=== PATIENT | female | born 1955 | race Caucasian/White ===

== ENCOUNTER 2017-08-28 12:17 | Inpatient (IN) | payer MEDICARE ==
[~2017-08-28] VITALS: Wt 85.8 kg
[2017-08-28] VITALS (8 sets, daily range): BP systolic 109–140; BP diastolic 40–110
[2017-08-28] MEDS ORDERED: VITAMIN D2400 UNIT PO (12:39)
[2017-08-28] MEDS ORDERED: LASIX40 MG PO (12:40)
[2017-08-28] MEDS ORDERED: FERROUS SULFAT325 MG PO (12:40)
[2017-08-28] MEDS ORDERED: TOPROL XL50 M1 PO (12:41)
[2017-08-28] MEDS ORDERED: LEVEMIR100 UNIT/1 SQ (12:41)
[2017-08-28] MEDS ORDERED: CLARITIN10 MG PO (12:41)
[2017-08-28 13:09] LABS: HEMATOCRIT 26.8 % (37.0-47.0); HEMOGLOBIN 8.5 g/dl (12.0-16.0); MEAN CELL VOLUME 82.5 fl (81.0-99.0); MEAN CORPUSCULAR HGB 26.2 pg (27.0-31.0); MEAN CORPUSCULAR HGB CONC 31.7 g/dl (33.0-37.0); PLATELET COUNT AUTOMATED 374 10*3/uL (130-400); RED BLOOD COUNT 3.25 10*6/uL (4.10-5.10); RED CELL DISTRI WIDTH 17.2 % (0-14.5); WHITE BLOOD COUNT 21.4 10*3/uL (4.8-10.8)
[2017-08-28 13:26] LABS: ALBUMIN 1.6 gm/dl (3.1-4.5); ALKALINE PHOSPHATASE 96 U/L (45-117); BUN 15 mg/dl (7-24); CHLORIDE 87 mmol/L (98-107); CREATININE 0.59 mg/dL (0.55-1.02); LIPASE 125 U/L (73-393); POTASSIUM 4.7 mmol/L (3.5-5.1); SGOT/AST 22 IU/L (3-35); SGPT/ALT 22 U/L (12-78); SODIUM 124 mmol/L (136-145); TOTAL PROTEIN 7.4 gm/dL (6.4-8.2)
[2017-08-28 13:28] LABS: BILIRUBIN NEGATIVE (NEGATIVE); BLOOD 2+ (NEGATIVE); CLARITY SL CLOUDY (CLEAR); COLOR YELLOW (YELLOW); GLUCOSE 2+ (NEGATIVE); KETONE NEGATIVE (NEGATIVE); LEUKO ESTERASE NEGATIVE (NEGATIVE); NITRITE NEGATIVE (NEGATIVE); UROBILINOGEN 0.2 E.U./dl (0.2-1.0)
[2017-08-28 13:28] LABS: TROPONIN I < 0.015 ng/ml (<0.045)
[2017-08-28 13:44] LABS: TOTAL CELLS COUNTED 100 #CELLS
[2017-08-28 13:45] LABS: PLATELET SUFFICIENCY NORMAL (NORMAL); POLYCHROMASIA SLIGHT
[2017-08-28 13:51] LABS: ACT PARTIAL THROMBO TIME 22.3 SECONDS (20.8-31.5); INTERNATIONAL NORM RATIO 1.1 (2.0-3.5)
[2017-08-28] MEDS ORDERED: TYLENOL325 M1 PO (18:54)
[2017-08-28] MEDS ORDERED: DULCOLAX10 M1 R (18:55)
[2017-08-28] MEDS ORDERED: MILK OF MA400 MG/51 PO (18:56)
[2017-08-28] MEDS ORDERED: FLEET ENEMA 13133 ML R (18:57)
[2017-08-28] MEDS ORDERED: IMODIUM A-D2 M2 PO (18:59)
[2017-08-28] MEDS ORDERED: MUCINEX DM 30/61 TAB PO (18:59)
[2017-08-28] MEDS ORDERED: PHENERGAN25 M3 PO (19:00)
[2017-08-28] MEDS ORDERED: PHENERGAN25 MG/1 ML IM (19:01)
[2017-08-28] MEDS ORDERED: OCEAN104 ML NAS (19:02)
[2017-08-28] MEDS ORDERED: DUONEB 3 MG/3 ML3 M1 INH (19:03)
[2017-08-29] VITALS: BP 107/52
[2017-08-29 04:00] VITALS: BP 104/50
[2017-08-29 05:48] LABS: ALBUMIN 1.6 gm/dl (3.1-4.5); ALKALINE PHOSPHATASE 89 U/L (45-117); BUN 16 mg/dl (7-24); CHLORIDE 89 mmol/L (98-107); CHOLESTEROL 89 mg/dL (<200); CREATININE 0.42 mg/dL (0.55-1.02); HDL CHOLESTEROL 8 mg/dl (40-60); LDL CHOLESTEROL 40 mg/dL (9-159); PHOSPHOROUS 1.9 mg/dL (2.5-4.9); POTASSIUM 4.3 mmol/L (3.5-5.1); SGOT/AST 21 IU/L (3-35); SGPT/ALT 19 U/L (12-78); SODIUM 128 mmol/L (136-145); TOTAL PROTEIN 7.1 gm/dL (6.4-8.2); TRIGLYCERIDES 203 mg/dl (<150); VLDL CHOLESTEROL 41 mg/dL (6-40)
[2017-08-29 05:58] LABS: MEAN CELL VOLUME 83.6 fl (81.0-99.0); MEAN CORPUSCULAR HGB 25.7 pg (27.0-31.0); MEAN CORPUSCULAR HGB CONC 30.8 g/dl (33.0-37.0); MEAN PLATELET VOLUME 9.1 fl (9.6-12.3); PLATELET COUNT AUTOMATED 430 10*3/uL (130-400); RED BLOOD COUNT 3.11 10*6/uL (4.10-5.10); RED CELL DISTRI WIDTH 17.4 % (0-14.5); WHITE BLOOD COUNT 20.9 10*3/uL (4.8-10.8)
[2017-08-29 06:23] LABS: BASOPHILS 1 % (0-1); TOTAL CELLS COUNTED 100 #CELLS
[2017-08-29 06:24] LABS: PLATELET SUFFICIENCY HIGH (NORMAL); TOXIC GRANULATION SLIGHT
[2017-08-29 07:43] LABS: VITAMIN D, 25-HYDROXY 28.7 ng/mL (30-100)
[2017-08-29 08:00] VITALS: BP 113/50
[2017-08-29 12:00] VITALS: BP 110/53
[2017-08-29 16:00] VITALS: BP 119/57
[2017-08-29 20:00] VITALS: BP 109/55
[2017-08-30] VITALS: BP 152/59; BP 90/53
[2017-08-30 04:00] VITALS: BP 137/72
[2017-08-30 05:24] LABS: ALBUMIN 1.6 gm/dl (3.1-4.5); ALKALINE PHOSPHATASE 102 U/L (45-117); BUN 19 mg/dl (7-24); CHLORIDE 94 mmol/L (98-107); CREATININE 0.49 mg/dL (0.55-1.02); PHOSPHOROUS 3.4 mg/dL (2.5-4.9); POTASSIUM 4.7 mmol/L (3.5-5.1); SGOT/AST 29 IU/L (3-35); SGPT/ALT 22 U/L (12-78); SODIUM 132 mmol/L (136-145); TOTAL PROTEIN 7.2 gm/dL (6.4-8.2)
[2017-08-30 05:54] LABS: HEMATOCRIT 27.1 % (37.0-47.0); HEMOGLOBIN 8.2 g/dl (12.0-16.0); MEAN CORPUSCULAR HGB 25.7 pg (27.0-31.0); MEAN CORPUSCULAR HGB CONC 30.3 g/dl (33.0-37.0); MEAN PLATELET VOLUME 9.2 fl (9.6-12.3); PLATELET COUNT AUTOMATED 493 10*3/uL (130-400); RED BLOOD COUNT 3.19 10*6/uL (4.10-5.10); RED CELL DISTRI WIDTH 17.6 % (0-14.5); WHITE BLOOD COUNT 14.2 10*3/uL (4.8-10.8)
[2017-08-30 06:26] LABS: BASOPHILS 1 % (0-1); PLATELET SUFFICIENCY HIGH (NORMAL); POLYCHROMASIA SLIGHT; TOTAL CELLS COUNTED 100 #CELLS
[2017-08-30 08:00] VITALS: BP 124/61
[2017-08-30 12:00] VITALS: BP 129/61
[2017-08-30 16:00] VITALS: BP 121/61
[2017-08-30 20:00] VITALS: BP 124/66
[2017-08-31] VITALS: BP 116/56
[2017-08-31 06:11] LABS: HEMATOCRIT 27.7 % (37.0-47.0); HEMOGLOBIN 8.5 g/dl (12.0-16.0); MEAN CELL VOLUME 83.9 fl (81.0-99.0); MEAN CORPUSCULAR HGB 25.8 pg (27.0-31.0); MEAN CORPUSCULAR HGB CONC 30.7 g/dl (33.0-37.0); MEAN PLATELET VOLUME 8.7 fl (9.6-12.3); NUCLEATED RED BLOOD CELL 0.2 % (0.0-0.0); PLATELET COUNT AUTOMATED 514 10*3/uL (130-400); RED CELL DISTRI WIDTH 17.8 % (0-14.5); WHITE BLOOD COUNT 12.6 10*3/uL (4.8-10.8)
[2017-08-31 06:42] LABS: TOTAL CELLS COUNTED 100 #CELLS
[2017-08-31 06:43] LABS: PLATELET SUFFICIENCY HIGH (NORMAL); POLYCHROMASIA SLIGHT
[2017-08-31 06:44] LABS: BUN 16 mg/dl (7-24); CHLORIDE 97 mmol/L (98-107); CREATININE 0.28 mg/dL (0.55-1.02); PHOSPHOROUS 3.3 mg/dL (2.5-4.9); POTASSIUM 4.3 mmol/L (3.5-5.1); SODIUM 135 mmol/L (136-145)
[2017-08-31 08:00] VITALS: BP 126/71
[2017-08-31 12:00] VITALS: BP 122/68
[2017-08-31 16:00] VITALS: BP 130/86
[2017-08-31 20:00] VITALS: BP 130/86
[2017-09-01 00:23] VITALS: BP 151/67
[2017-09-01 06:24] LABS: HEMOGLOBIN 9.1 g/dl (12.0-16.0); MEAN CELL VOLUME 86.2 fl (81.0-99.0); MEAN CORPUSCULAR HGB 26.1 pg (27.0-31.0); MEAN CORPUSCULAR HGB CONC 30.3 g/dl (33.0-37.0); MEAN PLATELET VOLUME 8.6 fl (9.6-12.3); NUCLEATED RED BLOOD CELL 0.2 % (0.0-0.0); PLATELET COUNT AUTOMATED 555 10*3/uL (130-400); RED BLOOD COUNT 3.48 10*6/uL (4.10-5.10); RED CELL DISTRI WIDTH 17.9 % (0-14.5); WHITE BLOOD COUNT 13.2 10*3/uL (4.8-10.8)
[2017-09-01 06:36] LABS: BUN 17 mg/dl (7-24); CHLORIDE 96 mmol/L (98-107); CREATININE 0.26 mg/dL (0.55-1.02); POTASSIUM 4.6 mmol/L (3.5-5.1); SODIUM 135 mmol/L (136-145)
[2017-09-01 07:06] LABS: ATYPICAL LYMPHS 1 % (0-0); TOTAL CELLS COUNTED 100 #CELLS
[2017-09-01 07:07] LABS: PLATELET SUFFICIENCY HIGH (NORMAL); POLYCHROMASIA SLIGHT; TOXIC GRANULATION SLIGHT
[2017-09-01 08:00] VITALS: BP 125/71
[2017-09-01 12:00] VITALS: BP 148/76
[2017-09-01 16:00] VITALS: BP 136/82
[2017-09-01 20:00] VITALS: BP 144/70
[2017-09-02] VITALS: BP 131/65
[2017-09-02 07:48] LABS: BUN 18 mg/dl (7-24); CHLORIDE 94 mmol/L (98-107); CREATININE 0.34 mg/dL (0.55-1.02); POTASSIUM 4.8 mmol/L (3.5-5.1); SODIUM 131 mmol/L (136-145)
[2017-09-02 07:50] LABS: HEMATOCRIT 29.5 % (37.0-47.0); HEMOGLOBIN 8.9 g/dl (12.0-16.0); MEAN CORPUSCULAR HGB 25.6 pg (27.0-31.0); MEAN CORPUSCULAR HGB CONC 30.2 g/dl (33.0-37.0); MEAN PLATELET VOLUME 8.6 fl (9.6-12.3); PLATELET COUNT AUTOMATED 516 10*3/uL (130-400); RED BLOOD COUNT 3.47 10*6/uL (4.10-5.10); RED CELL DISTRI WIDTH 18.4 % (0-14.5); WHITE BLOOD COUNT 11.1 10*3/uL (4.8-10.8)
[2017-09-02 08:00] VITALS: BP 144/70
[2017-09-02 08:16] LABS: PLATELET SUFFICIENCY HIGH (NORMAL); POLYCHROMASIA SLIGHT; TOTAL CELLS COUNTED 100 #CELLS
[2017-09-02 08:17] LABS: ROULEAUX SLIGHT
[2017-09-02 12:00] VITALS: BP 152/88
[2017-09-02 16:22] VITALS: BP 152/83
[2017-09-02 20:00] VITALS: BP 150/79
[2017-09-03] VITALS: BP 144/80
[2017-09-03 08:00] VITALS: BP 136/54
[2017-09-03 12:00] VITALS: BP 154/68
[2017-09-03 16:00] VITALS: BP 131/61
[2017-09-03 20:00] VITALS: BP 121/68
[2017-09-04] VITALS: BP 102/69
[2017-09-04 08:00] VITALS: BP 114/64
[2017-09-04 12:00] VITALS: BP 113/70; BP 114/56
[2017-09-04 16:00] VITALS: BP 139/80
[2017-09-04 20:00] VITALS: BP 116/55
[2017-09-05] VITALS: BP 119/76
[2017-09-05 06:48] LABS: BASO % 0.4 % (0.0-1.0); EOS # 0.3 10*3/uL (0.0-0.4); EOS % 3.4 % (1.0-4.0); HEMATOCRIT 30.1 % (37.0-47.0); HEMOGLOBIN 9.4 g/dl (12.0-16.0); LYMPH # 1.9 10*3/uL (1.3-4.4); LYMPH % 23.5 % (27.0-41.0); MEAN CELL VOLUME 84.3 fl (81.0-99.0); MEAN CORPUSCULAR HGB 26.3 pg (27.0-31.0); MEAN CORPUSCULAR HGB CONC 31.2 g/dl (33.0-37.0); MEAN PLATELET VOLUME 8.4 fl (9.6-12.3); MONO # 0.7 10*3/uL (0.1-1.0); MONO % 9.2 % (3.0-9.0); NEUT # 4.9 10*3/uL (2.3-7.9); NEUT % 62.5 % (47.0-73.0); PLATELET COUNT AUTOMATED 331 10*3/uL (130-400); RED BLOOD COUNT 3.57 10*6/uL (4.10-5.10); RED CELL DISTRI WIDTH 18.9 % (0-14.5); WHITE BLOOD COUNT 7.9 10*3/uL (4.8-10.8)
[2017-09-05 08:00] VITALS: BP 140/54
[2017-09-05 12:00] VITALS: BP 134/63
[2017-09-05 16:00] VITALS: BP 127/60
[2017-09-05 20:00] VITALS: BP 151/84
[2017-09-06] VITALS: BP 141/80
[2017-09-06 08:00] VITALS: BP 159/66
[2017-09-06 13:00] VITALS: BP 146/80
[2017-09-07] VITALS: BP 136/71
[2017-09-07 06:26] LABS: BASO % 0.5 % (0.0-1.0); EOS # 0.3 10*3/uL (0.0-0.4); EOS % 4.4 % (1.0-4.0); HEMATOCRIT 31.7 % (37.0-47.0); HEMOGLOBIN 9.8 g/dl (12.0-16.0); LYMPH # 2.1 10*3/uL (1.3-4.4); LYMPH % 27.7 % (27.0-41.0); MEAN CELL VOLUME 84.5 fl (81.0-99.0); MEAN CORPUSCULAR HGB 26.1 pg (27.0-31.0); MEAN CORPUSCULAR HGB CONC 30.9 g/dl (33.0-37.0); MEAN PLATELET VOLUME 8.7 fl (9.6-12.3); MONO # 0.4 10*3/uL (0.1-1.0); MONO % 5.6 % (3.0-9.0); NEUT # 4.6 10*3/uL (2.3-7.9); NEUT % 61.4 % (47.0-73.0); PLATELET COUNT AUTOMATED 320 10*3/uL (130-400); RED BLOOD COUNT 3.75 10*6/uL (4.10-5.10); RED CELL DISTRI WIDTH 18.6 % (0-14.5); WHITE BLOOD COUNT 7.5 10*3/uL (4.8-10.8)
[2017-09-07 06:45] LABS: ALBUMIN 2.1 gm/dl (3.1-4.5); ALKALINE PHOSPHATASE 68 U/L (45-117); BUN 23 mg/dl (7-24); CHLORIDE 96 mmol/L (98-107); CREATININE 0.27 mg/dL (0.55-1.02); POTASSIUM 4.3 mmol/L (3.5-5.1); SGOT/AST 32 IU/L (3-35); SGPT/ALT 26 U/L (12-78); SODIUM 132 mmol/L (136-145); TOTAL PROTEIN 7.6 gm/dL (6.4-8.2)
[2017-09-07 08:00] VITALS: BP 140/60
[2017-09-07 12:00] VITALS: BP 108/78
[2017-09-07 16:00] VITALS: BP 139/49
[2017-09-07 20:00] VITALS: BP 129/86
[2017-09-08] VITALS: BP 130/85
[2017-09-08 06:38] LABS: BASO % 0.5 % (0.0-1.0); EOS # 0.3 10*3/uL (0.0-0.4); EOS % 3.8 % (1.0-4.0); HEMATOCRIT 31.6 % (37.0-47.0); HEMOGLOBIN 9.8 g/dl (12.0-16.0); LYMPH # 2.7 10*3/uL (1.3-4.4); LYMPH % 32.2 % (27.0-41.0); MEAN CELL VOLUME 84.5 fl (81.0-99.0); MEAN CORPUSCULAR HGB 26.2 pg (27.0-31.0); MEAN PLATELET VOLUME 8.7 fl (9.6-12.3); MONO # 0.5 10*3/uL (0.1-1.0); MONO % 6.4 % (3.0-9.0); NEUT # 4.7 10*3/uL (2.3-7.9); NEUT % 56.7 % (47.0-73.0); PLATELET COUNT AUTOMATED 321 10*3/uL (130-400); RED BLOOD COUNT 3.74 10*6/uL (4.10-5.10); RED CELL DISTRI WIDTH 18.6 % (0-14.5); WHITE BLOOD COUNT 8.3 10*3/uL (4.8-10.8)
[2017-09-08 06:52] LABS: ALBUMIN 2.1 gm/dl (3.1-4.5); ALKALINE PHOSPHATASE 72 U/L (45-117); BUN 24 mg/dl (7-24); CHLORIDE 97 mmol/L (98-107); CREATININE 0.33 mg/dL (0.55-1.02); POTASSIUM 4.5 mmol/L (3.5-5.1); SGOT/AST 26 IU/L (3-35); SGPT/ALT 26 U/L (12-78); SODIUM 135 mmol/L (136-145); TOTAL PROTEIN 7.6 gm/dL (6.4-8.2)
[2017-09-08 08:00] VITALS: BP 128/58
[2017-09-08 16:00] VITALS: BP 124/73
[2017-09-08 20:00] VITALS: BP 140/69
[2017-09-09] VITALS: BP 107/85
[2017-09-09 06:23] LABS: BASO # 0.1 10*3/uL (0.0-0.1); BASO % 0.6 % (0.0-1.0); EOS # 0.4 10*3/uL (0.0-0.4); EOS % 4.3 % (1.0-4.0); HEMATOCRIT 32.9 % (37.0-47.0); LYMPH # 2.6 10*3/uL (1.3-4.4); LYMPH % 32.1 % (27.0-41.0); MEAN CELL VOLUME 85.7 fl (81.0-99.0); MEAN CORPUSCULAR HGB CONC 30.4 g/dl (33.0-37.0); MEAN PLATELET VOLUME 8.5 fl (9.6-12.3); MONO # 0.5 10*3/uL (0.1-1.0); MONO % 5.7 % (3.0-9.0); NEUT # 4.6 10*3/uL (2.3-7.9); NEUT % 56.9 % (47.0-73.0); PLATELET COUNT AUTOMATED 335 10*3/uL (130-400); RED BLOOD COUNT 3.84 10*6/uL (4.10-5.10); RED CELL DISTRI WIDTH 18.8 % (0-14.5); WHITE BLOOD COUNT 8.1 10*3/uL (4.8-10.8)
[2017-09-09 06:26] LABS: BUN 20 mg/dl (7-24); CHLORIDE 98 mmol/L (98-107); CREATININE 0.28 mg/dL (0.55-1.02); POTASSIUM 4.5 mmol/L (3.5-5.1); SODIUM 134 mmol/L (136-145)
[2017-09-09 08:00] VITALS: BP 136/62
[2017-09-09 12:00] VITALS: BP 141/57
[2017-09-09 16:00] VITALS: BP 136/56
[2017-09-09 20:00] VITALS: BP 119/56
[2017-09-10] VITALS: BP 113/67
[2017-09-10 08:00] VITALS: BP 120/72
[2017-09-10 12:00] VITALS: BP 116/61
[2017-09-10] MEDS ORDERED: FLAGYL500 MG PO (13:44)
[2017-09-10] MEDS ORDERED: REMEDY CALAZIME4 GM T (13:44)
[2017-09-10] MEDS ORDERED: CIPRO500 MG PO (13:44)
[2017-09-10] MEDS ORDERED: Insulin Lispro, Reco SC (13:44)
[2017-09-10] MEDS ORDERED: VITAMIN D-32000 UNIT PO (13:44)
[2017-09-10] MEDS ORDERED: NORCO 5-325 TA1 EACH PO (13:45)
[2017-09-10 16:00] VITALS: BP 116/66
== END 2017-09-10 17:11 | disposition other institution (70) | DRG 871 ==
LOC: ED 12:17 → 5E 17:31 → ICCU 17:31 → EDHOLD 17:31 → ICCU 17:49 → 5E 08-30 14:39
PROVIDERS: Emergency Medicine; Internal Medicine; Internal Medicine Nephrology; Student in an Organized Health Care Education/Training Program
PROC: 0W9J30Z Drainage of Pelvic Cavity with Drainage Device, Percutaneous Approach (ICD-10-PCS; principal; 2017-08-29)
DX: A41.9 Sepsis, unspecified organism (principal); K63.1 Perforation of intestine (nontraumatic); G93.41 Metabolic encephalopathy; E43 Unspecified severe protein-calorie malnutrition; K35.2 Acute appendicitis with generalized peritonitis; E87.0 Hyperosmolality and hypernatremia; Q45.3 Other congenital malformations of pancreas and pancreatic duct; E87.8 Other disorders of electrolyte and fluid balance, not elsewhere classified; E83.42 Hypomagnesemia; N73.9 Female pelvic inflammatory disease, unspecified; R09.89 Other specified symptoms and signs involving the circulatory and respiratory systems; D72.821 Monocytosis (symptomatic); D64.9 Anemia, unspecified; E11.65 Type 2 diabetes mellitus with hyperglycemia; I25.10 Atherosclerotic heart disease of native coronary artery without angina pectoris; I50.9 Heart failure, unspecified; K57.30 Diverticulosis of large intestine without perforation or abscess without bleeding; Z99.81 Dependence on supplemental oxygen; Z68.33 Body mass index [BMI] 33.0-33.9, adult; Z79.4 Long term (current) use of insulin; Z88.2 Allergy status to sulfonamides; Z88.8 Allergy status to other drugs, medicaments and biological substances; Z91.030 Bee allergy status; Z79.899 Other long term (current) drug therapy; I25.2 Old myocardial infarction; Z90.49 Acquired absence of other specified parts of digestive tract; Z82.49 Family history of ischemic heart disease and other diseases of the circulatory system

== ENCOUNTER → 2017-11-06 | Outpatient (CLI) | payer MEDICARE ==
[~2017-11-06] MED LIST: CIPRO500 MG PO; CLARITIN10 MG PO; DULCOLAX10 M1 R; DUONEB 3 MG/3 ML3 M1 INH; FERROUS SULFAT325 MG PO; FLAGYL500 MG PO; FLEET ENEMA 13133 ML R; IMODIUM A-D2 M2 PO; Insulin Lispro, Reco SC; LASIX40 MG PO; LEVEMIR100 UNIT/1 SQ; MILK OF MA400 MG/51 PO; MUCINEX DM 30/61 TAB PO; NORCO 5-325 TA1 EACH PO; OCEAN104 ML NAS; PHENERGAN25 M3 PO; PHENERGAN25 MG/1 ML IM; PROBIOTIC1 EAC1 PO; REMEDY CALAZIME4 GM T; TOPROL XL50 M1 PO; TYLENOL325 M1 PO; VITAMIN D-32000 UNIT PO; VITAMIN D2400 UNIT PO
== END | disposition home or self-care (01) ==
LOC: CT 11:49 → LAB 11:49 → CT 13:00
DX: I51.7 Cardiomegaly (principal); K65.1 Peritoneal abscess; R10.30 Lower abdominal pain, unspecified

== ENCOUNTER → 2017-11-11 | Day surgery (SDC) | payer MEDICARE ==
[~2017-11-11] VITALS: Ht 160 cm; Wt 87.5 kg
[2017-11-11 07:02] VITALS: BP 142/68
[2017-11-11 08:45] VITALS: BP 95/46
[2017-11-11 09:00] VITALS: BP 102/60
[2017-11-11 09:15] VITALS: BP 112/64
== END | disposition home or self-care (01) ==
LOC: SDC 11-05 08:45
DX: K57.30 Diverticulosis of large intestine without perforation or abscess without bleeding (principal); I11.0 Hypertensive heart disease with heart failure; I50.9 Heart failure, unspecified; I25.10 Atherosclerotic heart disease of native coronary artery without angina pectoris; I25.2 Old myocardial infarction; E11.9 Type 2 diabetes mellitus without complications; E66.09 Other obesity due to excess calories; Z86.73 Personal history of transient ischemic attack (TIA), and cerebral infarction without residual deficits; Z87.01 Personal history of pneumonia (recurrent); Z88.2 Allergy status to sulfonamides; Z88.8 Allergy status to other drugs, medicaments and biological substances; Z90.49 Acquired absence of other specified parts of digestive tract; Z98.890 Other specified postprocedural states; Z83.3 Family history of diabetes mellitus; Z82.49 Family history of ischemic heart disease and other diseases of the circulatory system; Z68.34 Body mass index [BMI] 34.0-34.9, adult

== ENCOUNTER → 2017-11-25 | Day surgery (SDC) | payer MEDICARE ==
[~2017-11-25] VITALS: Ht 160 cm; Wt 87.5 kg
[2017-11-25 08:47] LABS: BASO # 0.1 10*3/uL (0.0-0.1); BASO % 0.6 % (0.0-1.0); EOS # 0.3 10*3/uL (0.0-0.4); EOS % 3.8 % (1.0-4.0); HEMATOCRIT 38.7 % (37.0-47.0); HEMOGLOBIN 12.4 g/dl (12.0-16.0); LYMPH # 1.8 10*3/uL (1.3-4.4); LYMPH % 21.8 % (27.0-41.0); MEAN CELL VOLUME 83.8 fl (81.0-99.0); MEAN CORPUSCULAR HGB 26.8 pg (27.0-31.0); MEAN PLATELET VOLUME 9.3 fl (9.6-12.3); MONO # 0.6 10*3/uL (0.1-1.0); MONO % 7.3 % (3.0-9.0); NEUT # 5.3 10*3/uL (2.3-7.9); NEUT % 66.1 % (47.0-73.0); PLATELET COUNT AUTOMATED 253 10*3/uL (130-400); RED BLOOD COUNT 4.62 10*6/uL (4.10-5.10); RED CELL DISTRI WIDTH 14.5 % (0-14.5); WHITE BLOOD COUNT 8.1 10*3/uL (4.8-10.8)
[2017-11-25 08:57] LABS: BUN 17 mg/dl (7-24); CHLORIDE 99 mmol/L (98-107); CREATININE 0.43 mg/dL (0.55-1.02); POTASSIUM 4.3 mmol/L (3.5-5.1); SODIUM 134 mmol/L (136-145)
[2017-11-25 10:35] VITALS: BP 167/66
[2017-11-25 17:03] VITALS: BP 140/63
[2017-11-25 17:15] VITALS: BP 126/47
[2017-11-25 17:30] VITALS: BP 140/75
[2017-11-25 17:45] VITALS: BP 134/72
[2017-11-25 18:22] VITALS: BP 136/68
== END ==
LOC: SDC 11-21 12:30
DX: T81.4XXA Infection following a procedure, initial encounter (principal); K65.1 Peritoneal abscess; Z53.31 Laparoscopic surgical procedure converted to open procedure; I11.0 Hypertensive heart disease with heart failure; I25.10 Atherosclerotic heart disease of native coronary artery without angina pectoris; I50.9 Heart failure, unspecified; I25.2 Old myocardial infarction; E11.9 Type 2 diabetes mellitus without complications; K21.9 Gastro-esophageal reflux disease without esophagitis; Z79.4 Long term (current) use of insulin; Z86.73 Personal history of transient ischemic attack (TIA), and cerebral infarction without residual deficits; Z87.01 Personal history of pneumonia (recurrent); Z88.2 Allergy status to sulfonamides; Z88.8 Allergy status to other drugs, medicaments and biological substances; Z98.890 Other specified postprocedural states; Z79.899 Other long term (current) drug therapy